=== PATIENT | male | born 1950 | race Caucasian/White ===

== ENCOUNTER 2020-10-18 15:51 | Outpatient (REF) | payer MEDICARE, SELFPAY | END 2020-10-18 15:52 | disposition home or self-care (01) | LOC: HO.LAB 15:51 | PROVIDERS: Visit Provider Internal Medicine | DX: Z20.828 Contact with and (suspected) exposure to other viral communicable diseases (principal) | CPT/HCPCS: C9803; U0003 ==

== ENCOUNTER 2024-05-29 12:13 | Emergency (ER) | payer MEDICARE, OTHER, SELFPAY ==
--- NOTE | ~2024-05-29 | CT_ITS ---
EXAMINATION: CT HEAD WITHOUT CONTRAST CT CERVICAL SPINE WITHOUT CONTRAST CLINICAL INFORMATION: Elderly fall. Patient on anticoagulation. COMPARISON: None available. TECHNIQUE: Contiguous axial imaging was performed from the skull base to vertex without intravenous administration of contrast. Contiguous axial imaging was performed from the upper chest through the skull base without intravenous administration of contrast. Coronal and sagittal reformats were obtained at the acquisition workstation. This CT examination was performed using dose optimization techniques as appropriate, variously including the following: *Automated exposure control. *Adjustment of mA and/or kV according to patient size (this includes techniques or standardized protocols for targeted exams where dose is matched to indication/reason for exam; i.e. extremities or head). *Use of iterative reconstruction technique. DLP: 1487 mGy-cm FINDINGS: Head: There is no evidence of acute intracranial hemorrhage or edematous territorial infarction. Guzman-white matter differentiation is preserved. There is no abnormal attenuation within the brain parenchyma. The ventricles are normal in morphology and size. No evidence for obstructive hydrocephalus. No abnormal mass effect or midline shift. No extra-axial fluid collections. Calcific atherosclerotic disease of the intracranial internal carotid and vertebral arteries. No hyperdense vessel sign. Moderate laceration and subgaleal hematoma along the left aspect of the frontal bone, measuring up to 0.4 cm in depth. No associated acute osseous anomalies. Mild mucosal thickening of the paranasal sinuses. The mastoid air cells and middle ear cavities are clear. Bilateral lens extractions. Cervical Spine: The atlantooccipital and atlantoaxial articulations remain well aligned. Moderate degenerative arthropathy of the atlantodental articulation. Straightening of the normal cervical lordosis. Otherwise, there is anatomic alignment of the vertebral bodies and posterior elements. No evidence of acute fracture or subluxation. The vertebral body heights are maintained. Advanced degenerative disc disease from C6-T1. Moderate degenerative disc disease at all additional levels. Facet and uncovertebral joint arthropathy leads to osseous encroachment on the neural foramina at C3-C4 and from C5-T1. There is no prevertebral soft tissue swelling. Left pectoral pacemaker. The thyroid gland and remaining cervical soft tissues are within normal limits. The lung apices demonstrate no abnormalities. CT/CT cervical spine wo IV con IMPRESSION: 1. No evidence of acute intracranial hemorrhage or edematous territorial infarction. 2. No evidence of acute fracture or traumatic subluxation of the cervical spine. 3. Left frontal scalp laceration and hematoma. No associated osseous anomalies. 4. Moderate multilevel degenerative spondyloarthropathy of the cervical spine.
--- NOTE | 2024-05-29 12:14 | ED.FALL ---
HPI - Fall General Chief Complaint: Fall Stated Complaint: fall, laceration Source: patient and EMS Mode of arrival: EMS Limitations: no limitations History of Present Illness ED Provider: Paul Cabrales MD HPI Narrative: 5-year-old male anticoagulated with history of pacemaker patient unfortunately fell just prior to arrival in his yd face 1st onto a brick patio floor from standing height. He was doing some yd work in inadvertently came upon a bee hive and started running quickly slipped and fell. Does not describe this as a syncopal fall. Head strike on the ground directly forehead with some small laceration and bleeding hemostatic bandage applied by EMS. He denies headache he is oriented x4. Euglycemic and with normal vitals and no significant headache during transport on arrival here. He denies any chest, back, abdominal, pelvic, buttock or extremity injuries whatsoever. He has otherwise been in his normal state of health feeling well. He does have some very mild posterior neck pain denies any focal neurologic symptoms Related Data Allergies Allergy/AdvReac Type Severity Reaction Status Date / Time No Known Allergies Allergy Verified 05/29/24 12:21 [No Known Allergies*] [facility] Social History Social History Alcohol intake: current Alcohol type: beer Smoked in Last 30 Days: Yes Use of substances other than those prescribed or required for medical reasons: No Advance Directives: No Advance Directives Information Provided: Yes Do you have a plan to hurt others: No Plan Physical Exam Vital Signs: Vital Signs: Last Vital Signs Temp 98.3 F 05/29/24 12:23 Pulse 70 05/29/24 14:08 Resp 16 05/29/24 14:08 BP 136/82 05/29/24 14:08 Pulse Ox 95 05/29/24 14:08 O2 Del Method Room Air 05/29/24 14:08 BMI result Body Mass Index 28.5 Const: Other: EXAM: Gen: Alert, awake, well appearing, well hydrated. Head: Frontal forehead and laceration about 2 cm just above the left eyebrow. No cranial step-offs or hematomas to the scalp. Eyes: Anicteric, Normal conjunctiva. Mild medial lid ecchymosis. No proptosis. EOMI. No hyphema. Normal sclerae bilaterally. Gross vision intact. ENT: Moist mucosa, no pallor. ?No septal hematoma no gross nasal deformity or trauma Neck: Cervical collar in place. Minimal tenderness questionably over the midline or left lateral paraspinal musculature. Trachea midline no other neck trauma or tenderness Respiratory: Breathing comfortably, No distress.Clear to auscultation bilaterally, symmetric chest expansion, No wheeze, rales, ronchi. Cardiovascular: Regular rate and rhythm. No murmurs or rub. Well perfused periphery, warm extremities. No edema. ?Chest wall pacemaker palpable Abdominal: Soft, no objective distension. No palpable masses or obvious organomegaly. No focal tenderness, no guarding, no rebound tenderness or other peritoneal findings. : No flank tenderness. Neuro: Alert. Gross movement of all extremities intact. ?5/5 proximal and distal strength bilateral upper and lower extremities. Normal sensation to light touch throughout. Symmetric face. Pupils 2-3 mm symmetric reactive oriented x4 Vital signs: See flowsheet Medications Administered Discontinued Medications Generic Name Dose Route Start Last Admin Trade Name Freq PRN Reason Stop Dose Admin Acetaminophen 975 mg 05/29/24 12:22 05/29/24 12:40 Acetaminophen 325 Mg Tablet PO 05/29/24 12:23 975 mg ONCE ONE Administration Diphtheria/Tetanus/Acell Pertussis 0.5 ml 05/29/24 12:22 05/29/24 12:40 Diphth,Pertus(Acell),Tet Adult 0.5 Ml Syringe IM 05/29/24 12:23 0.5 ml .ONCE ONE Administration Lidocaine/Epinephrine 10 ml 05/29/24 12:19 05/29/24 12:39 Lidocaine Hcl 1%/Epi 1:100,000 10 Ml Vial INFILTRATI 05/29/24 12:20 10 ml ONCE ONE Administration Procedures Laceration Laceration 1: Site: face Side (If applicable): left Size (cm): 2 Description: irregular Depth: simple, single layer Local Anesthetic: lidocaine 1% and with epi Amount of anesthesia used (mL): 6 Pre-repair: wound explored and irrigated extensively Skin layer closed with: nylon Size (cm): 6-0 Number of sutures: 5 Technique: simple, interrupted Medical Decision Making Medical Decision Making MDM Narrative: 73-year-old male anticoagulated with nonsyncopal fall clearly this was a slip mechanical fall as he was running away from bees. He did not receive any stings nor is there any evidence of allergic reaction or anaphylaxis. He did suffer some facial trauma as noted above. Due to anticoagulation will scan head and neck. No evidence of truncal or extremity injuries. We will continue to monitor him repair of the laceration once head CT is cleared. Admission/Observation Consideration of admission/observation: Escalation of care including admission/observation considered INITIAL CONCERN FOR THE POSSIBILITY OF INTRACRANIAL HEMORRHAGE PARTICULARLY GIVEN THE ANTICOAGULATION AND MECHANISM OF INJURY Lab Data 05/29/24 12:42 05/29/24 12:42 Labs: Lab Results 05/29/24 Range/Units 12:42 WBC 8.1 (4.8-10.8) X10*3/uL RBC 4.55 L (4.60-5.80) X10*6/uL Hgb 16.0 (14.0-18.0) g/dl Hct 46.5 (42.0-52.0) % MCV 102.2 H (80.0-98.0) fL MCH 35.2 H (27.0-33.0) pg MCHC 34.4 (31.0-36.0) g/dl RDW 14.1 (11.0-16.0) % Plt Count 142 L (160-400) X10*3/uL MPV 8.9 L (9.4-12.4) fL Immature Gran % (Auto) 0.4 (0.0-0.4) % Neut % (Auto) 71.8 (45-73) % Lymph % (Auto) 16.9 L (20-40) % Greenlee % (Auto) 9.1 (2-11) % Eos % (Auto) 1.2 (0-4) % Baso % (Auto) 0.6 (0-2) % Lymph # (Auto) 1.4 (1.2-4.9) X10*3/uL Greenlee # (Auto) 0.7 (0.1-1.2) X10*3/uL Eos # (Auto) 0.1 (0.0-0.4) X10*3/uL Baso # (Auto) 0.1 (0.0-0.2) X10*3/uL Abs Immat Gran (auto) 0.03 (0.00-0.03) X10*3/uL Absolute Neuts (auto) 5.8 (2.0-8.3) x10*3/uL Absolute Nucleated RBC 0.000 (0.0-0.012) X10*3/uL Nucleated RBC % (auto) 0.0 (0.0-0.2) /100WBC Sodium 142 (135-145) mmol/L Potassium 4.5 (3.3-5.1) mmol/L Chloride 109 H (96-108) mmol/L Carbon Dioxide 24 (22-29) mmol/L Anion Gap 14 (12-20) BUN 19 H (9-16) mg/dL Creatinine 1.04 (0.5-1.4) mg/dL Estim Creat Clear Calc 79.9 Estimated GFR > 60 Random Glucose 122 H (60-115) mg/dL Calcium 9.8 (8.4-10.2) mg/dL Independent Interpretation I performed an independent interpretation of an: CT Scan (NO ACUTE INTRACRANIAL HEMORRHAGE 14:05) Radiology Impression Discussion of test interpretation with radiology: I have reviewed the radiologist's reading. Radiologist Impression: Cervical spine and head are negative for acute trauma. Independent Historian Clinical information obtained from an independent historian. History obtained from or confirmed by: EMS Discharge Plan Discharge Clinical Impression: Facial laceration, Head injury Patient Disposition: Home, Self-Care Instructions: Laceration (DC), Head Injury (ED) Additional Instructions: DISCHARGE DIAGNOSES: FACIAL LACERATION, HEAD STRIKE WITH BRUISING OF THE FACE POSSIBLE CONCUSSION HISTORY OF PRESENTATION: ?FALL EMERGENCY DEPARTMENT COURSE,TESTS, TREATMENTS: While in the ED today CT SCAN WAS PERFORMED OF THE HEAD AND CERVICAL SPINE WITHOUT ACUTE TRAUMATIC INJURY. LACERATION REPAIR 5 SMALL SUTURES THAT NEED TO BE TAKEN OUT IN APPROXIMATELY 1 WEEK BY URGENT CARE YOUR PRIMARY DOCTOR DISCHARGE MEDICATIONS: ?[We have made no changes to your regular medication regimen] FOLLOW-UP: ?Call your primary or general physician soon as possible to discuss your symptoms, your ED visit and to discuss follow up plans FOLLOW-UP WITH YOUR PCP OR URGENT CARE FOR SUTURE REMOVAL. INSTRUCTIONS ?& RETURN PRECAUTIONS: If any symptoms change first call your primary physician, if it is after-hours your primary doctors office should have a provider compensation advisor you can speak with. If the symptoms are severe or very concerning to you then call 911 or return to the ED. RETURN BACK TO THE ED IF YOU DEVELOP SEVERE HEADACHE, SEVERE DIZZINESS, FALLING, PASSING OUT OR FOCAL NUMBNESS OR WEAKNESS OF THE BODY OR FACE DIFFICULTY SPEAKING Palu Cabrales MD Emergency Physician [facility] Print Language: Congolese
[2024-05-29 12:17] VITALS: BP 130/80; BP 136/85; PULSE 70; RESP 18; TEMP 36.8; O2SAT 95; O2SAT 96; BMI 28.5
[2024-05-29 12:23] VITALS: BP 136/85; PULSE 70; RESP 18; TEMP 36.8; O2SAT 95
[2024-05-29] MEDS: Lidocaine HCl 1%/Epi 1:100,000 10 ML VIAL INFILTRATI (12:39)
[2024-05-29] MEDS: Diphth,Pertus(ACell),Tet Adult 0.5 ML SYRINGE IM (12:40)
[2024-05-29] MEDS: Acetaminophen 325 MG TABLET 975 MG PO (12:40)
[2024-05-29 12:51] LABS: MANUAL DIFF FLAG NO
[2024-05-29 12:53] LABS: Basophils Absolute Auto 0.1 X10*3/uL (0.0-0.2); Basophils Percent Auto 0.6 % (0-2); Eosinophils Absolute Auto 0.1 X10*3/uL (0.0-0.4); Eosinophils Percent Auto 1.2 % (0-4); Hematocrit 46.5 % (42.0-52.0); Imm Gran Abs Auto 0.03 X10*3/uL (0.00-0.03); Imm Gran Pct Auto 0.4 % (0.0-0.4); Lymphocytes Absolute Auto 1.4 X10*3/uL (1.2-4.9); Lymphocytes Percent Auto 16.9 % (20-40); Mean Corpuscular HGB Conc 34.4 g/dl (31.0-36.0); Mean Corpuscular Hemoglobin 35.2 pg (27.0-33.0); Mean Corpuscular Volume 102.2 fL (80.0-98.0); Mean Platelet Volume 8.9 fL (9.4-12.4); Monocytes Absolute Auto 0.7 X10*3/uL (0.1-1.2); Monocytes Percent Auto 9.1 % (2-11); Neutrophils Absolute Auto 5.8 x10*3/uL (2.0-8.3); Neutrophils Percent Auto 71.8 % (45-73); Platelet Count 142 X10*3/uL (160-400); Red Blood Count 4.55 X10*6/uL (4.60-5.80); Red Cell Distribution Width 14.1 % (11.0-16.0); White Blood Count 8.1 X10*3/uL (4.8-10.8)
[2024-05-29 13:05] LABS: Anion Gap 14 (12-20); Blood Urea Nitrogen 19 mg/dL (9-16); Calcium 9.8 mg/dL (8.4-10.2); Carbon Dioxide 24 mmol/L (22-29); Chloride 109 mmol/L (96-108); Creatinine Clr Calc Pharmacy 79.9; Estimated Glomerular Filt Rate > 60; Glucose Random 122 mg/dL (60-115); Potassium 4.5 mmol/L (3.3-5.1); Sodium 142 mmol/L (135-145)
[2024-05-29 14:08] VITALS: BP 136/82; PULSE 70; RESP 16; O2SAT 95
[2024-05-29 16:03] VITALS: BP 145/80; PULSE 70; RESP 16; O2SAT 96
[2024-05-29 16:41] VITALS: BP 145/80; PULSE 70; RESP 16; TEMP 36.8; O2SAT 96
== END 2024-05-29 16:41 | disposition home or self-care (01) ==
PROVIDERS: Emergency Provider Emergency Medicine; PCP Internal Medicine
DX: S01.81XA Laceration without foreign body of other part of head, initial encounter (principal); S09.90XA Unspecified injury of head, initial encounter; W01.0XXA Fall on same level from slipping, tripping and stumbling without subsequent striking against object, initial encounter; Y93.H9 Activity, other involving exterior property and land maintenance, building and construction; Y92.017 Garden or yard in single-family (private) house as the place of occurrence of the external cause; Y99.9 Unspecified external cause status; Z23 Encounter for immunization
CPT/HCPCS: 12011; 36415; 70450; 72125; 80048; 85025; 90471; 90715; 99284